=== PATIENT | male | born 1940 | race Caucasian/White ===

== ENCOUNTER 2019-09-12 16:02 | Inpatient (IN) ==
[~2019-09-12 16:02] MED LIST: NS 1,000 ML IV PRN
--- NOTE | 2019-09-12 16:30 | Diag Imaging Result Doc PS360 ---
EXAM: CT HEAD W/O CONTRAST 09/12/2019 HISTORY: stroke like symptoms TECHNIQUE: This exam was performed using automated exposure control, adjustment of mA or kV according to patient size, and/or use of iterative reconstruction technique. COMMENT: There are calcifications in the vertebral and internal carotid arteries. There is no evidence of mass effect, bleed, or abnormal extra-axial fluid collection. There are patchy lucencies in the periventricular white matter adjacent to the right frontal horn. There are no previous studies available for comparison. There is some mucosal thickening in the ethmoid air cells otherwise the paranasal sinuses are clear. The calvarium is intact. There is a subcutaneous calcification posteriorly on the left consistent with a trichilemmal cyst. IMPRESSION: Chronic ischemic microvascular white matter changes. No evidence of acute disease. Given the history further evaluation with MRI may be desirable. Electronically signed by Mark Hutchison 09/12/2019 4:27 PM
--- NOTE | 2019-09-12 16:33 | Diag Imaging Result Doc PS360 ---
EXAM: CHEST-PORTABLE 09/12/2019 HISTORY: stroke like symptoms TECHNIQUE: AP portable at 1624 COMMENT: There is ill-defined alveolar opacity in the lingula. The left heart border is partially obscured. There are no previous studies available for comparison. The heart size appears to be within normal limits. IMPRESSION: Pneumonia in the lingula. Electronically signed by Mark Hutchison 09/12/2019 4:31 PM
[2019-09-12 16:50] LABS: BASO# 0.02 X1000 (0.0-0.2); BASO% 0.3 % (0.0-0.8); EOS# 0.04 X1000 (0.0-0.7); EOS% 0.5 % (0.0-10.0); HEMATOCRIT 42.7 % (42.0-52.0); HEMOGLOBIN 14.1 g/dL (14.0-18.0); LYMPH# 0.74 X1000 (1.2-3.4); LYMPH% 10.1 % (20.5-51.1); MCV 90.9 FL (81-99); MONO# 0.76 X1000 (0.11-0.59); MONO% 10.3 % (1.7-9.3); MPV 10.1 FL (7.4-10.4); NEUT% 78.8 % (42.2-75.2); PLT 147 X1000 (130-400); RDW 14.6 % (11.5-14.5); WBC 7.36 X1000 (4.8-10.8)
[2019-09-12 17:06] LABS: INR 1.14; PROTIME 14.8 Seconds (11.0-16.0)
[2019-09-12 17:07] LABS: PTT 35.2 Seconds (22.3-41.8)
[2019-09-12 17:15] LABS: AGAP 10; ALB/GLOB RATIO 1.6; ALBUMIN 3.5 g/dL (3.5-5.0); ALKALINE PHOSPHATASE 79 U/L (32-122); BUN 18 mg/dL (8-22); CALCIUM 8.7 mg/dL (8.8-10.2); CHLORIDE 103 mmol/L (98-107); COSMO 277; ESTIMATED GFR > 60; GLUCOSE 153 mg/dL (70-104); GOT 17 U/L (10-34); GPT 5 U/L (10-44); SODIUM 136 mmol/L (136-145); TCO2 23 mmol/L (25-35); TOTAL BILIRUBIN 0.45 mg/dL (0.20-1.00); TOTAL PROTEIN 5.7 g/dL (6.3-8.3)
[2019-09-12] MEDS ORDERED: ASPIRIN PO ONE (17:22)
--- NOTE | 2019-09-12 17:25 | PROVIDER DOCUMENTATION ---
This chart was entered by Lyndsey Iqbal Scribe, acting as scribe for Grupo Starr MD. HPI-Neurological Disorder - General Chief Complaint: STROKE ALERT Stated Complaint: stroke like symptoms Time Seen by Provider: 09/12/19 16:20 Source: patient, EMS Allergies/Adverse Reactions: Patient Allergies Allergy/AdvReac Type Severity Reaction Status Date / Time Penicillins AdvReac Unknown Verified 09/12/19 16:26 Home Medications: Home Medication List Medication Instructions Recorded Confirmed Last Taken Type Cholecalciferol (Vitamin D3) 50 mcg PO DAILY 09/12/19 09/12/19 09/12/19 History [D3-2000] Losartan/Hctz [Hyzaar 50/12.5 mg] 1 ea PO DAILY 09/12/19 09/12/19 09/12/19 History Metoprolol Tartrate [Lopressor] 100 mg PO BID 09/12/19 09/12/19 09/12/19 History Ubidecarenone [Coq-10] 100 mg PO DAILY 09/12/19 09/12/19 09/12/19 History - History of Present Illness-Neuro Nature of Presenting Problem: 79yowm presents to ED by EMS cc trouble walking, generalized weakness that started about 1000, slurred speech that started about 1530 according EMS who were called by pt son at 1620 after pt fell. EMS reports pt speech was slurred/thick, he had left facial droop with drooling and leaning to left upon their arrival and all but the slurred speech has resolved in ED. Pt denies marte or any injury. He is VERY emotional upon exam. He has hx of HTN. Severity: reports: moderate Onset/Duration: reports: this morning (1000) Timing: reports: still present Context: reports: impaired speech, falling Approximate time patient was last seen normal?: 10:00 Any recent trauma/injury?: reports: none Character of Deficits: reports: impaired speech, decreased ability to walk, fal ling New weakness or altered sensation location:: reports: RLE, LLE Cognitive Baseline: alert, oriented x3 Gait Baseline: walks without assistance Associated Symptoms: reports: slurred speech, trouble walking, weakness Similar Symptoms Previously?: No Recently seen or treated by another doctor?: No Review of Systems - Adult - REVIEW OF SYSTEMS - ADULT Constitutional: reports: see HPI. denies: chills, fever, fatique Eyes: reports: no symptoms reported Ears, Nose, Mouth & Throat: reports: no symptoms reported Cardiovascular: reports: no symptoms reported Respiratory: reports: no symptoms reported Gastrointestinal: reports: no symptoms reported Genitourinary: reports: no symptoms reported Musculoskeletal: reports: see HPI, muscle weakness Integumentary: reports: no symptoms reported Neurological: reports: see HPI, slurred speech. denies: headache/migraines Psychiatric: reports: no symptoms reported Endocrine: reports: no symptoms reported Hematologic/Lymphatic: reports: no symptoms reported Allergic/Immunologic: reports: no symptoms reported All Other Systems: Reviewed and Negative Past History - Adult - PAST MEDICAL HISTORY-ADULT Review of Records: reports: Nursing Assessment Review, Medications Reviewed, Social history reviewed & non-contributory. Major Childhood Illnesses: reports: denies history Cardiovascular: reports: HTN Respiratory: reports: denies history Gastrointestinal: reports: denies history Obstetrical/Gynecological: reports: denies history Genitourinary: reports: denies history Musculoskeletal: reports: denies history Neurological: reports: denies history Endocrine/Immune: reports: denies history Other Conditions: reports: denies history - IMMUNIZATION STATUS Childhood Immunizations: See Nurse Assessment Flu Vaccine: See Nurse Assessment - FAMILY HISTORY Family History: reviewed, not pertinent Physical Exam- Neurological - Physical Exam-Neuro Initial Vital Signs Reviewed: Yes General Appearance: appears well, alert. negative: anxious Eye Exam: bilateral eye: normal inspection, PERRL HENMT: normocephalic/atraumatic, moist mucous membranes. negative: angioedema Head Injury: no evidence of injury. negative: active bleeding Neck: non-tender, full range of motion, supple, normal inspection. negative: lymphadenopathy Respiratory: chest non-tender, lungs clear, normal breath sounds. negative: rhonchi, wheezing Cardiovascular: normal peripheral pulses, regular rate, rhythm. negative: bradycardia, tachycardia Abdominal Exam: normal bowel sounds, non tender, soft. negative: guarding, rebound Lymphatic: no adenopathy. negative: enlargement Extremity: normal range of motion, non-tender, normal gait, normal inspection. 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 negative: facial droop Motor/Sensory: no motor deficit, no sensory deficit, no pronator drift Integumentary: normal color, normal turgor, warm/dry. negative: jaundice Psych/Mental Status: oriented x 3, tearful. negative: disheveled - Glascow Coma Scale Best Eye Response: (4) open spontaneously Best Verbal Response: (5) oriented Best Motor Response: (6) obeys commands Total Glascow Score: 15 Progress - PLAN OF CARE/RESULTS Progress/Plan/Lab Results: Vital Signs - 8 hr 09/12/19 16:24 Temperature 98.2 F Pulse Rate 65 Respiratory Rate 17 Blood Pressure 146/114 O2 Sat by Pulse Oximetry 98 Laboratory Results - last 24 hr 09/12/19 09/12/19 09/12/19 16:35 16:35 16:35 WBC 7.36 RBC 4.70 Hgb 14.1 Hct 42.7 MCV 90.9 MCH 30.0 MCHC 33.0 RDW Std Deviation 14.6 H Plt Count 147 MPV 10.1 Neut % (Auto) 78.8 H Lymph % (Auto) 10.1 L [place] % (Auto) 10.3 H Eos % (Auto) 0.5 Baso % (Auto) 0.3 Neut # (Auto) 5.80 Lymph # (Auto) 0.74 L [place] # (Auto) 0.76 H Eos # (Auto) 0.04 Baso # (Auto) 0.02 PT INR PTT (Actin FS) Sodium 136 Potassium 4.0 Chloride 103 Carbon Dioxide 23 L Anion Gap 10 BUN 18 Creatinine 1.0 Estimated GFR/1.73 m2 > 60 BUN/Creatinine Ratio 18 Glucose 153 H Calculated Osmolality 277 Calcium 8.7 L Total Bilirubin 0.45 AST 17 ALT 5 L Alkaline Phosphatase 79 Troponin T High Sens 11 Total Protein 5.7 L Albumin 3.5 Globulin 2.2 Albumin/Globulin Ratio 1.6 09/12/19 16:35 WBC RBC Hgb Hct MCV MCH MCHC RDW Std Deviation Plt Count MPV Neut % (Auto) Lymph % (Auto) [place] % (Auto) Eos % (Auto) Baso % (Auto) Neut # (Auto) Lymph # (Auto) [place] # (Auto) Eos # (Auto) Baso # (Auto) PT 14.8 INR 1.14 PTT (Actin FS) 35.2 Sodium Potassium Chloride Carbon Dioxide Anion Gap BUN Creatinine Estimated GFR/1.73 m2 BUN/Creatinine Ratio Glucose Calculated Osmolality Calcium Total Bilirubin AST ALT Alkaline Phosphatase Troponin T High Sens Total Protein Albumin Globulin Albumin/Globulin Ratio Orders Category Date Time Status Cardiac Monitoring DIRECTED Care 09/12/19 16:00 Active Finger Stick Blood Sugar (ED) DIRECTED Care 09/12/19 16:00 Active Misc. NRSG Communication Order DIRECTED Care 09/12/19 16:00 Active Oxygen Therapy- ED Nursing DIRECTED Care 09/12/19 16:00 Active Saline Loc NOW Care 09/12/19 16:00 Active CHEST-PORTABLE [RAD] Stat Exams 09/12/19 16:[address] HEAD W/O CONTRAST [CT] Stat Exams 09/12/19 16:00 Completed CBC WITH ELECTRONIC DIFF [HEME] Stat Lab 09/12/19 16:35 Completed COMPREHENSIVE METABOLIC PANEL [CHEM] Stat Lab 09/12/19 16:35 Completed PROTIME WITH INR [COAG] Stat Lab 09/12/19 16:35 Completed PTT [COAG] Stat Lab 09/12/19 16:35 Completed TROPONIN T HIGH SENSITIVITY Stat Lab 09/12/19 16:35 Completed URINALYSIS W/POSS RFLX CULT [URINALYSIS] Stat Lab 09/12/19 16:00 Uncollected URINE DRUG SCREEN Stat Lab 09/12/19 16:00 Uncollected 0.9% Sodium Chloride Inj [Ns] 1,000 ml Med 09/12/19 15:59 Active IV 125 mls/hr Aspirin Med 09/12/19 17:22 Discontinued 325 mg PO NOW ONE EKG [EKG] Stat Ther 09/12/19 16:00 Ordered Result Diagrams: 09/12/19 16:35 09/12/19 16:35 - EKG 1 Time of EKG reading by physician:: 16:49 EKG Read and Signed by:: Grupo Starr EKG Interpretation (*Must complete 3 of following elements*): Abnormal Rate: 81 Rhythm: Sinus w/PVC [place]: normal QRS: LVH, PVC's ST Wave: normal - XRAY 1 XRAY: Bilateral XRAY Study: Chest Impression: See EMR Report ( IMPRESSION: Pneumonia in the lingula. Electronically signed by Mark Hutchison 09/12/2019 4:31 PM) - CT/MRI 1 CT Study: Cervical Spine, Head Impression: See EMR Report (IMPRESSION: Chronic ischemic microvascular white matter changes. No evidence of acute disease. Given the history further evaluation with MRI may be desirable. Electronically signed by Mark Hutchison 09/12/2019 4:27 PM) - CONSULTS/PCP/HOSPITALIST Notification #1 *Consult/PCP/Hospitalist*: Silke/CERTIFIED MEDICAL TECHNICIAN ASSISTANT Time Discussed: 17:22 Consult Disposition: Admit Departure - Departure Date of Disposition Decision: 09/12/19 Time of Disposition Decision: 17:21 DIAGNOSIS: HTN (hypertension) CVA (cerebral vascular accident) Qualifiers: CVA mechanism: unspecified Qualified Code(s): I63.9 - Cerebral infarction, unspecified Disposition: ADMITTED INPATIENT 09 Certified Medical Emergency: Emergent Condition: Fair Referrals and Follow-Ups: Roberto Gallagher MD [Primary Care Provider] - - Critical Care Note This patient required my direct & personal management of CC.: Yes Total Time (mins): 35 Critical Care Statement: This patient required my direct personal management to treat or rule out processes, the absence of which, could potentiallly result in sudden, clinically significant life or limb threatening deterioration. Attestation - Physician/ TEOFILO Attestation Patient care was provided by Advanced Practice Provider:: No The physician spent face to face time with patient:: Yes Advanced Practice Provider documentation review:: Supervising physician onsite and consulted in the evaluation and care of this patient. The physician did have a face to face encounter with the patient. - NIH Stroke Scale NIH Type: Initial Evaluation Level of Consciousness: 1-Drowsy, but arousable with minimal stimulation LOC Questions (ask month and age): 0-Answers Both Correctly LOC Commands (ask to open & close eyes;make a fist, let go): 0-Obeys Both Correctly Best Gaze (horizontal eye movement): 0-Normal Visual (use finger movement, counting or visual threat): 0-No Visual Loss Facial Palsy (show teeth or raise eyebrows & close eyes tght: 0-Symmetrical Movement Motor Function-left arm: 0-Normal Motor Function-right arm: 0-Normal Motor Function-left le-Normal Motor Function-right le-Normal Limb Ataxia(zjjeji-ublk-quciul, or heel to alcantar): 0-No Ataxia Sensory(pin prick to face,arms,trunk,legs-compare side/side): 0-No Ataxia Best Language(name item/read sentence.Ex-Down to Earth): 1-Mild to Moderate Aphasia Dysarthria(Pt read words or say words Ex.Mama,Tip-Top,Thanks: 1-Mild-Mod Slurring Words Extinction and Inattention: 0-Normal NIH Total Score: 3 This chart was documented by the indicated scribe, (Lyndsey Iqbal, Scribe) and accurately reflects the services I performed and decisions made by me, Grupo Starr MD, as attested by the provider's signature.
[2019-09-12] MEDS ORDERED: ZITHROMAX 500 MG/NS 500 MG/250 ML IVPB IV SCH (18:00)
[2019-09-12] MEDS ORDERED: TYLENOL PO PRN (18:28)
[2019-09-12 18:35] LABS: URINE SOURCE CLEAN CATCH
[2019-09-12 18:41] LABS: BILIRUBIN URINE NEGATIVE (NEGATIVE); BLOOD URINE NEGATIVE (NEGATIVE); COLOR YELLOW; GLUCOSE URINE NEGATIVE (NEGATIVE); KETONE URINE NEGATIVE (NEGATIVE); LEUKOCYTES URINE LARGE (NEGATIVE); NITRITE URINE NEGATIVE (NEGATIVE); PROTEIN URINE TRACE mg/dL (NEGATIVE); SP GRAVITY URINE 1.021; TURBIDITY URINE HAZY (CLEAR); UROBILINOGEN URINE NORMAL (NORMAL)
[2019-09-12 18:44] LABS: UR EPITHELIAL CELLS <10 /HPF (<10); URINE BACTERIA 1+ /HPF; URINE RBC <10 /HPF (<10); URINE WBC TNTC /HPF (<10)
[2019-09-12 18:55] LABS: URINE CASTS NONE SEEN
[2019-09-12 18:58] LABS: UR AMPHETAMINES QUAL NONE DETECTED (NONE DETECT); UR BARBITUATES QUAL NONE DETECTED (NONE DETECT); UR BENZODIAZEPIN QUAL NONE DETECTED (NONE DETECT); UR CANNABINOIDS QUAL NONE DETECTED (NONE DETECT); UR COCAINE QUAL NONE DETECTED (NONE DETECT); UR METHADONE QUAL NONE DETECTED (NONE DETECT); UR OPIATES QUAL NONE DETECTED (NONE DETECT); UR OXYCODONE QUAL NONE DETECTED (NONE DETECT); UR PCP QUAL NONE DETECTED (NONE DETECT)
[2019-09-12] MEDS ORDERED: LEVAQUIN 500 MG/D5W 500 MG/100 ML IVPB IV SCH (19:30)
--- NOTE | 2019-09-12 19:31 | HISTORY AND PHYSICAL ---
PRIMARY CARE PROVIDER: No one. CHIEF COMPLAINT: Speech difficulties. HISTORY OF PRESENT ILLNESS: Mr. Troy Shepard is an 79-year-old male. He is able answer a lot of questions appropriately but he has got a medical history of hypertension, denies history of stroke. He states that he woke up around 6 a.m. and thought it was around 9 a.m. that he could not talk right, he felt lightheaded, some slight blurred vision. When the son was called the son states that it started around 10 a.m., noticed he had some trouble walking, decreased concentration, unable to focus well with the speech deficits. He did not notice that there was one side or the other that could have been more weak than the other. He also has said that his father had vertigo on and off for the past month or so. Assessment reveals mostly speech deficits. He does have some expressive aphasia. He is completely oriented. He is able to answer yes or no questions easier than answering with long answers, physically is symmetrical as far strength. There is no numbness or tingling. Pupils are equal and reactive. Face is symmetric so will allow for some permissive hypertension overnight and start him back on his beta nivia tomorrow. He is going to go for CTA of the head and neck. PAST MEDICAL HISTORY: Hypertension. SURGICAL HISTORY: 1. Appendectomy. 2. Right inguinal hernia repair. SOCIAL HISTORY: Denies tobacco, alcohol or illicit drug use. He lives with his son who is Troy Shepard Junior. Contact is [phone]. FAMILY HISTORY: Mother NC, father in a accident. ALLERGIES: Penicillin. HOME MEDICATIONS: 1. Co-Q10 100 mg p.o. daily. 2. Vitamin D3 50 mcg p.o. daily. 3. Hyzaar 50/12.5 mg p.o. daily. 4. Lopressor 100 mg p.o. twice daily. REVIEW OF SYSTEMS: Fourteen point review of systems are complete and all are negative except for those mentioned above HPI, he is actually emotional as well, very tearful. PHYSICAL EXAMINATION: VITAL SIGNS: Temperature 98.2 degrees, heart rate 65, respiratory rate 17, blood pressure 146/114, O2 saturation 98% on room air. GENERAL: Mr. Troy Shepard is an 79-year-old male. He is quite emotional but he is able answer questions appropriately and much easier answering yes and no questions. HEENT: Atraumatic, normocephalic. Pupils are equal and reactive. Extraocular movements intact. Mucous membranes are moist. NECK: Trachea midline. CARDIOVASCULAR: S1, S2. Regular rate and rhythm. No rubs, gallops, murmurs. No lower extremity edema. +2 dorsalis and radial pulses, negative JVD or carotid bruits. PULMONARY: Clear to auscultate bilateral breath sounds. No accessory muscle use or work of breathing. GI: Soft, nontender, nondistended. Positive bowel sounds x4. EXTREMITIES: Moves all extremities equally, full range of motion. NEURO: A and O x3, follows commands. Sensory is intact. He does have some mild degree of expressive aphasia with slurred or dysarthria. SKIN: Warm, dry, intact. LABORATORY DATA: White blood cells 7000, hemoglobin 14, hematocrit 42, platelet count 147,000, INR is 1.14, PTT is 35.2. Sodium 136, potassium 4.0, BUN 18, creatinine 1.0, glucose 153, calcium 8.7, bilirubin 0.45, AST 17, ALT 5, troponin 11, albumin 3.5. Urinalysis trace protein, large leukocytes, too numerous to count white blood cells, 1+ bacteria. IMAGING: Chest x-ray, pneumonia in the lingula. Head CT chronic ischemic microvascular ischemic changes. ASSESSMENT AND PLAN: 1. Acute cerebrovascular accident primarily with speech deficit and dysarthria and expressive aphasia. Initial head CT negative. Head CTA and neck CTA has been ordered. Will have carotid ultrasound tomorrow, echocardiogram. Patient's son has been updated, he is on aspirin, statin, neurology consulted for tomorrow. 2. History of hypertension but we are going allow for permissive hypertension overnight, resume his beta nivia tomorrow. 3. Deep venous thrombosis prophylaxis SCDs. Dictated by ALVARADO Miller for Guido Núñez MD cc: ALVARADO Miller MD
--- NOTE | 2019-09-12 19:53 | HISTORY AND PHYSICAL ---
ADDENDUM: This is an addendum to history and physical dictated by the nurse practitioner. I agree with most components of history, physical, assessment, and plan. In brief, Mr. Shepard is an 79-year-old man with past medical history of essential hypertension who comes in with chief complaints of aphasia, dysphagia and dysarthria since 10 a.m. this morning. We were informed about this patient around 6 p.m. and we were informed by the ER physician that the patient was out of tPA window and he did not have any measurable defect according to history gathered by the nurse practitioner while talking to patient's son, the patient has been having difficulty with vertigo since last month or so. Today morning around 10 a.m. when he woke up he was found to have dysarthria, dysphagia and aphasia and he was not able to speak out the words, so his son called the emergency room. In the emergency room, he was found to have temperature of 98.2 degrees, pulse 65, respiratory 17, blood pressure 146/114, saturating 98% on room air. His head CT was unremarkable for any acute intracranial process, so the hospitalist team was consulted for further management. PHYSICAL EXAM: At the time of my evaluation, the patient denies any weakness of any particular arm or leg. He denies any abnormal sensation. He denies any known facial droop. He is crying because of inability to speak out the words as fluently as he would otherwise. His oral cavity is dry. Air entry bilaterally equal. No wheeze, rhonchi, crackles.Cardiovascular: S1, S2 normal. No murmur or gallop. Abdomen: Is soft, nontender. : He has urine catheter. Extremities: No lower extremity edema. Neurologic: He is alert. He could tell me his full name, his date, and he was oriented with situation as well as place. No facial asymmetry. Extraocular movement intact horizontally and vertically. He does have nystagmus at the end of horizontal movement. Pupils are bilaterally equal reacting to light. Visual acuity grossly intact. Facial sensations are intact. Tongue appears normal. I did not check for taste. His cough is intact. His shoulder shrug is equal in bilateral shoulders. His sensation equal bilateral upper and lower extremity. His tone is 2+ bilateral upper and lower extremities. His power is 5 on 5 on bilateral shoulder elbow interphalangeal, hip, knee and ankle joints. His reflexes are 2+ biceps and knee jerks. His Babinski has plantar flexion, though he did have some withdrawal bilaterally. His speech is rapid and is dysarthric. I could not appreciate any paraphasia. He has intolerance to light. He was not able to perform rapid alternating movement appropriately with both hands. LABS: WBC 7.3, hemoglobin 14.1, platelets 147,000. He has a glucose of 153. He has pyuria, though he denied any burning micturition. Urine culture is in lab. Head CT had chronic microvascular ischemic changes without evidence of acute disease. ASSESSMENT AND PLAN: 1. Dysarthria, aphasia, nystagmus on exam and dysdiadochokinesia with history of recent vertigo since last few weeks. The patient has risk factors of essential hypertension, age being risk factors for cerebrovascular accident. These findings are concerning for cerebellar cerebrovascular accident. There is no focal weakness on examination. I will get CT scan angiography of head and neck to rule out any basilar or vertebral artery occlusion. I will also get MRI of brain to evaluate for definitive cerebrovascular accident. I will keep him on aspirin, high-dose atorvastatin and will allow permissive hypertension unless his systolic blood pressure is more than 220 or diastolic blood pressure is more than 115. 2. 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 I will check magnesium level. In future, I will consider adding metoprolol to his regimen. 3. Pyuria without any symptoms and left lung infiltrate. I will start him on intravenous levofloxacin and I will get further detailed history about urinary symptoms. Currently, the patient was emotional and did not contribute to the history meaningfully. To be certain whether this is asymptomatic pyuria versus urine infection elderly could precipitate central nervous system symptoms. DISPOSITION: Monitor patient on the floor. Plan of care discussed with the patient. His questions have been answered. cc: MD ELIZABETH Herrera
[2019-09-12] MEDS: LIPITOR PO SCH (22:09)
[2019-09-13 07:10] LABS: BASO# 0.06 X1000 (0.0-0.2); BASO% 0.7 % (0.0-0.8); EOS# 0.06 X1000 (0.0-0.7); EOS% 0.7 % (0.0-10.0); HEMATOCRIT 41.4 % (42.0-52.0); HEMOGLOBIN 13.7 g/dL (14.0-18.0); IMM GRAN# 0.02 X1000 (0.0-0.04); IMM GRAN% 0.2 % (0.0-0.5); LYMPH# 1.11 X1000 (1.2-3.4); LYMPH% 12.8 % (20.5-51.1); MCH 30.2 PG (27-31); MCHC 33.1 g/dL (33-37); MCV 91.2 FL (81-99); MONO# 0.84 X1000 (0.11-0.59); MONO% 9.7 % (1.7-9.3); MPV 10.1 FL (7.4-10.4); NEUT# 6.56 X1000 (1.4-6.5); NEUT% 75.9 % (42.2-75.2); PLT 148 X1000 (130-400); RBC 4.54 XMIL (4.7-6.1); RDW 14.5 % (11.5-14.5); WBC 8.65 X1000 (4.8-10.8)
[2019-09-13 07:37] LABS: ESTIMATED GFR > 60; GPT < 5 U/L (10-44)
[2019-09-13 07:38] LABS: AGAP 11; ALB/GLOB RATIO 1.3; ALBUMIN 3.3 g/dL (3.5-5.0); ALKALINE PHOSPHATASE 73 U/L (32-122); BUN 17 mg/dL (8-22); CALCIUM 8.5 mg/dL (8.8-10.2); CHLORIDE 107 mmol/L (98-107); COSMO 285; CREATININE 0.9 mg/dL (0.7-1.2); GLUCOSE 110 mg/dL (70-104); GOT 16 U/L (10-34); POTASSIUM 3.7 mmol/L (3.5-5.1); SODIUM 142 mmol/L (136-145); TCO2 24 mmol/L (25-35); TOTAL BILIRUBIN 0.65 mg/dL (0.20-1.00); TOTAL PROTEIN 5.8 g/dL (6.3-8.3)
--- NOTE | 2019-09-13 07:49 | EKG Report ---
Test Performed on : 09/12/2019 4:42:47 PM Test Reason : stroke like sx Blood Pressure : / mmHG Vent. Rate : 081 BPM Atrial Rate : 081 BPM P-R Int : 204 ms QRS Dur : 094 ms QT Int : 400 ms P-R-T Axes : 055 -05 067 degrees QTc Int : 464 ms Sinus rhythm. with frequent premature ventricular complexes. Minimal voltage criteria for LVH, may be normal variant Septal infarct , age undetermined Abnormal ECG When compared with ECG of 11-FEB-2007 13:08, premature ventricular complexes. are now present ST now depressed in Lateral leads Unconfirmed Result
--- NOTE | 2019-09-13 08:17 | Diag Imaging Result Doc PS360 ---
CT ANGIOGRAM HEAD/NECK - 09/12/2019 INDICATION: stroke; speech/aphasic TECHNIQUE: Axial CT images were obtained after administering intravenous contrast. Three-dimensional angiographic images were generated. COMPARISON: None FINDINGS: Normal aortic arch and great vessel origins. The carotid artery systems are patent bilaterally. No significant stenosis. There is moderate calcified atherosclerotic plaque of the intracranial vertebral arteries bilaterally. On the left side, there is critical stenosis of the vertebral artery at the level of the odontoid. There is about 95% narrowing here. 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 There is moderate calcified vascular plaque of the supraclinoid internal carotid arteries bilaterally. On the right side there is mild stenosis of about 30% narrowing. On the left side, there is severe stenosis of about 80% narrowing. IMPRESSION: 1. 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 2. Atherosclerotic narrowing of the supraclinoid internal carotid arteries bilaterally, mild on the right and severe on the left. This exam was performed using automated exposure control, adjustment of mA or kV according to patient size, and/or use of iterative reconstruction technique Electronically signed by Francois Boone 09/13/2019 8:14 AM
[2019-09-13] MEDS ORDERED: LOPRESSOR PO SCH (09:00)
--- NOTE | 2019-09-13 11:46 | Diag Imaging Result Doc PS360 ---
MRI BRAIN W/WO CONTRAST - 09/13/2019 INDICATION: stroke COMPARISON: CT from 09/12/2019 FINDINGS: There is a relatively large area of restricted diffusion in the right paramedian tahir. This indicates an acute stroke here. This pontine stroke is very close to the area of focal occlusion of the basilar artery. There is also a tiny area of restricted diffusion in the superior right cerebellar hemisphere. No intracranial mass or hemorrhage. There is no abnormal contrast enhancement. There are several scattered areas of primarily deep cerebral white matter hyperintensity bilaterally indicating most likely chronic microvascular ischemia. This is relatively advanced. There is mild diffuse cerebral atrophy. IMPRESSION: Recent strokes in the right paramedian tahir and right cerebellar hemisphere. 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 Electronically signed by Francois Boone 09/13/2019 11:43 AM
[2019-09-13] MEDS: VITAMIN D PO SCH (12:11)
[2019-09-13] MEDS: ASPIRIN PO SCH (12:11)
--- NOTE | 2019-09-13 12:11 | NEUROLOGY CONSULTATION ---
DATE: 09/13/2019 LOCATION: Room 314. HISTORY OF PRESENT ILLNESS: Mr. 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 History from the patient is that he felt well yesterday morning. He had sudden onset of unsteady gait, dizziness with possible room spinning features, dysarthria, dysphagia, horizontal diplopia. He felt weak all over, and did not notice definite loss of strength in one limb more than another or on one side of his body more than the other. He had a global headache, which was never intense. There was no nausea or vomiting. He did not collapse or lose consciousness. He did fall. He thinks he is a little bit worse today, but not remarkably changed. He reports no prior history of similar problems, no prior stroke, no recent head injury, no other neurologic history. He reports he was taking his medicines as directed. He takes medicine for blood pressure. He believes he might have taken medicine for cholesterol management in the past, but not recently. He had taken daily aspirin in the past, but not recently. Here, he has been afebrile. Heart rate has ranged 60s to 80s. Systolic blood pressures have ranged 100 to 150s. Lab showed blood sugars 150s and then 110, calcium 8.7 and then 8.5, nothing else remarkable on chemistry. Urine drug screen was all negative. There was pyuria and 1+ bacteriuria. Brain imaging includes initial noncontrast CT, which shows typical age-related micro ischemic change, but nothing definitely remarkable. 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 Brain MRI is ordered. PHYSICAL EXAMINATION: On exam, Mr. Shepard is awake, alert, attentive, and appropriate. Speech is very dysarthric, but can be understood. Language function is intact on brief bedside testing. Recent and remote memory appear good. I did not test his cognitive function thoroughly. He has full visual silvestre tested in each quadrant to finger counting. There is good vertical eye movement. There is incomplete abduction of the right eye and he reports horizontal diplopia on right gaze. He reports horizontal diplopia on gaze left and this is more fleeting, and there was not any consistent finding on cover/uncover testing with left gaze. Corneal reflexes are present. Pupils react to light. Facial motility is a little bit diminished bilaterally, but appears symmetric. Tongue protrudes slightly to the left. Palate does not elevate well, but is midline. Shoulder shrug is equal on the left and right. Strength is 4/5 in the left limbs at the deltoid, wrist extensors, iliopsoas, anterior tibialis, and power is good in the right limbs. Tone is increased in the left arm compared to the right. He had difficulty with left [id number] and with rapid alternating movements using the left hand. There is slight difficulty with right finger to nose. He has good proprioception at the great toe MTP joint and at the index finger PIP joint bilaterally. He reports symmetric pinprick and light touch appreciation over the limbs. Plantar response is silent bilaterally. Reflexes are 1+ at the ankles, 2+ at the right knee, 3+ at the left knee, 2+ symmetrically at the wrists. I did not test his gait. IMPRESSION: Reported sudden onset of dysphagia, dysarthria, horizontal diplopia, generalized weakness and clumsiness, with clinical finding of left hemiparesis, which is relatively moderate. There is not definite sensory deficit. 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 Horizontal diplopia suggests pontine involvement. The limb ataxia is bilateral, but much worse on the hemiparetic left side. There may be additional right cerebellar or left brainstem involvement. All of this is posterior circulation territory. RECOMMENDATION: We need to be aggressive with hydration, and maintain adequate systolic blood pressure. I would continue aspirin and statin, and be aggressive with management of blood sugar. Further plans will depend on the MRI report and on his clinical course. Thank you for asking Neurology to see Mr. Shepard. cc: MD ELIZABETH Paul III
--- NOTE | 2019-09-13 14:49 | ECHO REPORT ---
ORDER DATE: 09/13/2019 INDICATIONS: CVA. FINDINGS: 1. Right atrium appears mildly enlarged at 4.3 cm. 2. Mild tricuspid regurgitation. Insufficient data to estimate RV systolic pressure. 3. Normal RV size and systolic function. 4. Trace pulmonic insufficiency. 5. Mild left atrial enlargement with a dimension of 4.5 cm. 6. No mitral valve prolapse. Mild mitral regurgitation. No mitral stenosis. 7. Normal LV size, end-diastolic dimension of 4.6 cm. Mild left ventricular hypertrophy with interventricular septal wall thickness of 1.2 cm. Normal LV systolic function. Estimated EF of 65% with normal wall motion. 8. Aortic valve opens well. It is sclerotic. The valve is trileaflet. Mild insufficiency. No stenosis. 9. Aorta appears normal in visualized segments. 10. No pericardial effusion seen. cc: MD Silke Walters CRNP
--- NOTE | 2019-09-13 16:22 | PROGRESS NOTE ---
DATE: 09/13/2019 INTERVAL HISTORY: He got a CT scan of head and brain angiography as well as MR imaging done this morning, which he tolerated well. SUBJECTIVE: He denies any chest pain, shortness of breath, or cough. He says he is feeling slightly better. He continues to have dysarthria though. VITALS: Currently, temperature 98.1 degrees, pulse 82, respiratory rate 19, blood pressure 152/78, he is saturating 98% on room air. PHYSICAL EXAMINATION: He is not in any acute distress. Oral cavity is moist. Lungs: Air entry bilaterally equal. No wheeze, rhonchi, or crackles. Cardiovascular: S1, S2 normal. No murmur, rub, or gallop. He does have frequent premature ventricular contractions. Abdomen: Soft, nontender. No lower extremity edema. He is alert. He does have significant speech impairment. No facial asymmetry. Cranial Nerve Examination: He has diplopia on the right eye abduction, though his responses were inconsistent. Otherwise, extraocular movements are intact horizontally and vertically. Pupils are bilaterally equal reacting to light. Facial sensations are intact. Tongue appears midline. His swallowing is slightly weak. His shoulder shrug is bilaterally equal and adequate. He does have significant dysarthria, dysphagia, and emotional lability. Sensory Examination: Crude touch equal bilateral upper and lower extremities as well as trunk. Motor Examination: Power is 4/5 in bilateral elbow joints, interphalangeal joints, wrist joints, knee joints, ankle joints, and hip joints. Tone appears bilaterally equal. He is alert. He could tell me his name, date, and he was aware with the situation. LABS: CBC has hemoglobin 13.7 platelets 148,000. IMAGING: Echocardiogram has ejection fraction of 65% with normal wall motion, mild left ventricular hypertrophy without any obvious mitral stenosis or intracardiac thrombus mentioned. Brain MRI had recent stroke in the right paramedian tahir and right cerebellar hemisphere. 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 There was atherosclerotic narrowing of the supraclinoid internal carotid arteries bilaterally, mild on the right and severe on the left. Telemetry strips have frequent premature ventricular contractions, though he denies any palpitations. ASSESSMENT AND PLAN: 1. 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 Continue aspirin, high- dose atorvastatin, and enoxaparin for deep venous thrombosis prophylaxis. Continue speech evaluation and physical therapy. I will keep his blood pressure more than 140 and keep him on intravenous fluids. 2. Left ventricular hypertrophy with premature ventricular contractions. He denies any palpitations. I will consider starting him on metoprolol. He may need outpatient repeat ECHO in future considering his premature ventricular contractions have been frequent. However, his ejection fraction has been normal at the moment. 3. Disposition. I will monitor him inside the hospital to make sure he does not have any worsening of the symptoms. I had a discussion about his case with the neurologist who recommended close observation. If he does not have worsening of neurological status, I could consider discharging him back to home with his son within the next 24 hours. I called his son and updated him about the patient's care. At the moment, considering the small size of the artery which is basilar that is occluded, neurology is of the opinion that he may not be amenable to any intervention, especially considering his neurological status has been stable and has not shown any signs of worsening, so I did not reach out to [facility]. ADDENDUM: I had a discussion with patient's son about home PT and home speech therapy vs rehab. The son suggested he would prefer his father to go home with him. However, he was not totally opposed to rehab either. At that point, we decided to wait for another PT evaluation on 09/14/19. Depending on how he does on repeat PT eval, a decision regarding home PT and home speech therapy vs rehab would be made. cc: MD ELIZABETH Herrera
--- NOTE | 2019-09-13 17:25 | PROGRESS NOTE ---
DATE: 09/13/2019 ADDENDUM: I performed a repeat neurological evaluation on patient. He continues to remain dysarthric and has dysdiadochokinesia, especially left arm. There is no change in neurological status. Neurological examination otherwise in terms of strength or sensation and a detailed discussion about his care with a neurologist who thinks considering basilar artery being a small posterior circulation artery and the fact that his neurological status has been stable, he could be managed medically. We will aggressively modify risk factors with aspirin, high-dose cholesterol medication, atorvastatin, and I will start him on enoxaparin for DVT prophylaxis. I updated the patient's son about my discussion with the neurologist and answered all of his questions. cc: Guido Núñez MD
[2019-09-13] MEDS ORDERED: LOVENOX SUBQ SCH (18:00)
[2019-09-13] MEDS: LIPITOR PO SCH (21:15)
[2019-09-14 06:47] LABS: BASO# 0.04 X1000 (0.0-0.2); BASO% 0.5 % (0.0-0.8); EOS# 0.09 X1000 (0.0-0.7); EOS% 1.1 % (0.0-10.0); HEMATOCRIT 43.2 % (42.0-52.0); HEMOGLOBIN 14.2 g/dL (14.0-18.0); IMM GRAN# 0.02 X1000 (0.0-0.04); IMM GRAN% 0.2 % (0.0-0.5); LYMPH# 1.08 X1000 (1.2-3.4); LYMPH% 12.6 % (20.5-51.1); MCHC 32.9 g/dL (33-37); MCV 91.1 FL (81-99); MONO# 0.98 X1000 (0.11-0.59); MONO% 11.5 % (1.7-9.3); NEUT# 6.34 X1000 (1.4-6.5); NEUT% 74.1 % (42.2-75.2); PLT 149 X1000 (130-400); RBC 4.74 XMIL (4.7-6.1); RDW 14.6 % (11.5-14.5); WBC 8.55 X1000 (4.8-10.8)
[2019-09-14 07:11] LABS: AGAP 13; ALB/GLOB RATIO 1.7; ALBUMIN 3.6 g/dL (3.5-5.0); ALKALINE PHOSPHATASE 78 U/L (32-122); BUN 18 mg/dL (8-22); CALCIUM 8.9 mg/dL (8.8-10.2); CHLORIDE 102 mmol/L (98-107); COSMO 281; CREATININE 0.9 mg/dL (0.7-1.2); ESTIMATED GFR > 60; GLUCOSE 97 mg/dL (70-104); GOT 19 U/L (10-34); GPT 5 U/L (10-44); POTASSIUM 3.8 mmol/L (3.5-5.1); SODIUM 140 mmol/L (136-145); TCO2 25 mmol/L (25-35); TOTAL BILIRUBIN 0.86 mg/dL (0.20-1.00); TOTAL PROTEIN 5.7 g/dL (6.3-8.3)
[2019-09-14] MEDS: VITAMIN D PO SCH (08:46)
[2019-09-14] MEDS: ASPIRIN PO SCH (08:46)
[2019-09-14 12:25] VITALS: BP 145/87
--- NOTE | 2019-09-14 12:55 | NEUROLOGY PROGRESS NOTE ---
DATE: 09/14/2019 SUBJECTIVE: Mr. Shepard reports he is improved today. He believes his speech and swallowing are better. He believes his limbs are stronger. He reports diplopia has resolved. He does not have headache. He continues afebrile. Systolic blood pressures have been stable 140s-150s over the last 24 hours. OBJECTIVE: On exam, he is awake, alert, and attentive. There is prominent emotional lability with tendency to cry. He has good gaze left, right, up and down, and this appears to be conjugate by confrontation. I did not test visual silvestre. Facial motility is a little bit diminished bilaterally. Tongue protrudes to the left but is improved compared to yesterday. Palate remains midline. Power is improved in the left arm on brief testing. He is less ataxic today than yesterday. Speech is definitely less dysarthric today. ASSESSMENT AND PLAN: We discussed the imaging findings of acute brainstem and cerebellar infarction. In light of his good health prior to stroke, report that this is initial stroke event, stable course with clinical improvement noted in the last 24 hours, location and size of infarct on imaging, I think prognosis for recovery is good. I encouraged him to be attentive and aggressive with his physical therapy, and to be careful with swallowing. We need to continue aggressive hydration, continue maintaining adequate blood pressures, continue aggressive management of blood sugar and lipids. I would continue daily aspirin as ordered. We will need to consider repeat CT angiogram and brain MRI electively. These will not be urgent as long as he is clinically stable and improving. If the problems with affect become more prominent, we might consider cautious trial with Nuedexta. Thanks for asking Neurology to see Mr. Shepard. cc: MD ELIZABETH Paul III
--- NOTE | 2019-09-14 16:23 | DISCHARGE SUMMARY ---
ADMISSION DATE: 09/12/2019 DISCHARGE DATE: 09/14/2019 DISPOSITION: Home with home health. FOLLOWUP: 1. Dr. Mcnair. 2. Dr. Mata. 3. Dr. Mari. CONSULTATIONS DURING THIS ADMISSION: Neurology was consulted. Patient was seen by Dr. Mata. INVASIVE PROCEDURES DONE DURING THIS ADMISSION: None. IMAGING STUDIES OF SIGNIFICANCE: 1. A chest x-ray did show pneumonia in the lingula. 2. CT scan of the head showed chronic microvascular changes. No evidence of acute disease. 3. A CTA of the head and neck showed unusual near-complete occlusion of the intracranial left vertebral artery and basilar artery. There was also atherosclerotic narrowing of the supraclinoid, internal carotid artery bilaterally, mild on the right and severe on the left. 4. An MRI of the brain showed a recent stroke in the right paramedian tahir and right cerebellar hemisphere. 5. An echocardiogram showed an ejection fraction of 65%. No major valvular abnormalities. ADMISSION DIAGNOSES: 1. Acute cerebrovascular accident. 2. Hypertension. DIAGNOSES AT THE TIME OF DISCHARGE: 1. Acute right paramedian, pontine, and right cerebellar cerebrovascular accident manifested clinically by dysphagia, dysarthria, horizontal diplopia, and generalized weakness and clumsiness. 2. Mild left ventricular hypertrophy. 3. Hypertension. 4. Significant carotid atherosclerotic disease, predominantly left more than right. The patient has been advised to follow up with vascular surgery at a later date for an endarterectomy evaluation. DISCHARGE MEDICATIONS: 1. Cholecalciferol 500 mcg p.o. daily. 2. Plavix 75 mg p.o. daily. 3. Losartan 25 mg p.o. daily. 4. Atorvastatin 40 mg p.o. at bedtime. 5. Aspirin 81 mg p.o. daily. 6. Metoprolol 100 mg p.o. daily. PRESENTING COMPLAINT: Speech difficulties. HISTORY OF PRESENTING COMPLAINT: Mr. Shepard is an 79-year-old, elderly, gentleman who has a history of hypertension. Comes to the emergency room because he could not talk, felt lightheaded, some blurred vision, and generalized clumsiness. Upon presenting to the emergency room, code brain was called. Initial CT scan of the head was unremarkable but a CTA was positive. He was subsequently admitted for further medical care. HOSPITAL COURSE: Mr. Shepard was admitted to the medical floor. Initially was allowed permissive hypertension and neurology was consulted. Patient was seen by Dr. Mata. Over the course of the hospital stay, his speech and his general clinical picture seems to have improved. He still remained with mild speech deficits but he was talking more. He was less clumsy. He was evaluated also by physical therapy. After today, he was able to do 100 feet full weightbearing with a front wheel walker. Mr. Shepard was also evaluated by speech therapy. Today, he has been able to tolerate his diet. He has been advised always to observe aspiration precautions. His vitals and clinically stable so we think he is okay to be discharged. Initially, we thought we could get him to rehab but Mr. Shepard is very adamant that he wants to go home. He has done about 100 feet with physical therapy today, so we have recommended home health to continue following him for physical therapy, speech, and occupational therapy. Other discharge instructions have been discussed with him. We started him back on his losartan but at a lower dose. I have also discontinued his hydrochlorothiazide at this point to prevent any intravascular depletion and hypotension. We have advised that Mr. Shepard follows up with Dr. Mari, the vascular surgeon, to evaluate at a later date for an endarterectomy since his imaging shows about 80% narrowing in the left internal carotid artery. Time spent for discharge is 38 minutes. cc: MD Aiden Mcclure MD Eston G. Norwood III, MD Robert C. Walker, MD
--- NOTE | 2019-09-15 14:11 | Carotid Study ---
DATE: 09/13/2019 REQUESTING PROVIDER: ALVARADO Miller WELLNESS PROGRAM MANAGER: Hanson. INDICATIONS: CVA. EQUIPMENT: Carena Vivid E9 ultrasound system with a 9 L-D transducer. FINDINGS: Complete diagram of ultrasound images can be seen, scanned in the patient's medical record. The peak systolic velocity noted on the right side is in the distal internal carotid artery and is noted to be 112. The peak systolic velocity noted on the left side is in the distal internal carotid artery and is noted to be 87. The calculated internal common ratio on the right is 1.46 and the left 0.90. Calculated stenosis on the right is 0 to 39 percent, left 0 to 39 percent. The right side has some atherosclerosis that is calculated at 0 to 39 percent, but is likely closer to the 39% range. The left side also has some atherosclerosis and calcifications. Both vertebral arteries appear to be antegrade flow. INTERPRETATION: By strict velocity criteria no hemodynamically significant flow-limiting stenosis noted. I would recommend continue monitoring. cc: MD Silke Pickard CRNP
== END 2019-09-14 16:10 | disposition home health service (06) | DRG 64 ==
LOC: SUPCPDRO → ED 16:02 → 3N 19:55 → SUATTDRO 19:55
PROVIDERS: ATTEND Internal Medicine

== ENCOUNTER 2019-09-15 11:40 | Inpatient (IN) ==
[2019-09-15] MEDS ORDERED: NS 1,000 ML IV ONE (11:54)
--- NOTE | 2019-09-15 12:00 | Diag Imaging Result Doc PS360 ---
EXAM: CT HEAD W/O CONTRAST 09/15/2019 HISTORY: stroke like symptoms TECHNIQUE: This exam was performed using automated exposure control, adjustment of mA or kV according to patient size, and/or use of iterative reconstruction technique. COMMENT: There is decreased attenuation in the white matter in the periventricular white matter of the right frontal lobe extending into the anterior limb of the internal capsule and the anterior external capsule. These findings were also present on the previous study of 09/12/2019. There is no evidence of mass effect bleed or abnormal extra-axial fluid collection. Otherwise are has been no significant change in the appearance the brain. IMPRESSION: Chronic microvascular changes. Essentially stable since 09/12/2019. Electronically signed by Mark Hutchison 09/15/2019 11:57 AM
--- NOTE | 2019-09-15 12:28 | Diag Imaging Result Doc PS360 ---
EXAM: CHEST-PORTABLE HISTORY: stroke like symptoms TECHNIQUE: Single view COMPARISON: 09/12/2019 FINDINGS: The lungs are well expanded. The heart is not enlarged. The vessels are not distended. There are no infiltrates. No effusion identified. IMPRESSION: No definite pneumonia on the current exam. Electronically signed by Rishabh Judge 09/15/2019 12:25 PM
[2019-09-15 13:01] LABS: HEMOGLOBIN 14.7 g/dL (14.0-18.0); RBC 4.86 XMIL (4.7-6.1); WBC 8.35 X1000 (4.8-10.8)
[2019-09-15 13:02] LABS: BASO# 0.07 X1000 (0.0-0.2); BASO% 0.8 % (0.0-0.8); EOS# 0.13 X1000 (0.0-0.7); EOS% 1.6 % (0.0-10.0); IMM GRAN# 0.03 X1000 (0.0-0.04); IMM GRAN% 0.4 % (0.0-0.5); LYMPH# 1.26 X1000 (1.2-3.4); LYMPH% 15.1 % (20.5-51.1); MCH 30.2 PG (27-31); MCHC 33.4 g/dL (33-37); MCV 90.5 FL (81-99); MONO# 0.95 X1000 (0.11-0.59); MONO% 11.4 % (1.7-9.3); MPV 10.3 FL (7.4-10.4); NEUT# 5.91 X1000 (1.4-6.5); NEUT% 70.7 % (42.2-75.2); PLT 148 X1000 (130-400); RDW 14.4 % (11.5-14.5)
[2019-09-15 13:09] LABS: INR 1.19; PROTIME 15.3 Seconds (11.0-16.0)
[2019-09-15 13:20] LABS: URINE SOURCE CATH
[2019-09-15 13:21] LABS: AGAP 11; ALB/GLOB RATIO 1.7; ALBUMIN 3.5 g/dL (3.5-5.0); ALKALINE PHOSPHATASE 76 U/L (32-122); BUN 20 mg/dL (8-22); CALCIUM 8.5 mg/dL (8.8-10.2); CHLORIDE 105 mmol/L (98-107); COSMO 282; CREATININE 0.8 mg/dL (0.7-1.2); ESTIMATED GFR > 60; GLUCOSE 95 mg/dL (70-104); GOT 24 U/L (10-34); GPT 5 U/L (10-44); SODIUM 140 mmol/L (136-145); TCO2 24 mmol/L (25-35); TOTAL PROTEIN 5.6 g/dL (6.3-8.3)
[2019-09-15 13:26] LABS: BILIRUBIN URINE NEGATIVE (NEGATIVE); BLOOD URINE SMALL (NEGATIVE); COLOR YELLOW; GLUCOSE URINE NEGATIVE (NEGATIVE); KETONE URINE TRACE mg/dL (NEGATIVE); LEUKOCYTES URINE MODERATE (NEGATIVE); NITRITE URINE NEGATIVE (NEGATIVE); PH URINE 6.5; PROTEIN URINE TRACE mg/dL (NEGATIVE); SP GRAVITY URINE 1.021; TURBIDITY URINE CLEAR (CLEAR); UROBILINOGEN URINE 2 mg/dL (NORMAL)
[2019-09-15 13:27] LABS: UR EPITHELIAL CELLS <10 /HPF (<10); URINE BACTERIA NEGATIVE /HPF; URINE RBC <10 /HPF (<10); URINE WBC 20-40 /HPF (<10)
[2019-09-15 13:36] LABS: UR AMPHETAMINES QUAL NONE DETECTED (NONE DETECT); UR BARBITUATES QUAL NONE DETECTED (NONE DETECT); UR BENZODIAZEPIN QUAL NONE DETECTED (NONE DETECT); UR CANNABINOIDS QUAL NONE DETECTED (NONE DETECT); UR COCAINE QUAL NONE DETECTED (NONE DETECT); UR METHADONE QUAL NONE DETECTED (NONE DETECT); UR OPIATES QUAL NONE DETECTED (NONE DETECT); UR OXYCODONE QUAL NONE DETECTED (NONE DETECT); UR PCP QUAL NONE DETECTED (NONE DETECT)
--- NOTE | 2019-09-15 14:00 | PROVIDER DOCUMENTATION ---
This chart was entered by Cindy Pulido Scribe, acting as scribe for David Cintron MD. HPI-Neurological Disorder - General Stated Complaint: stroke like symptoms Time Seen by Provider: 09/15/19 11:53 Source: patient, EMS Allergies/Adverse Reactions: Patient Allergies Allergy/AdvReac Type Severity Reaction Status Date / Time Penicillins AdvReac Unknown Verified 09/12/19 16:26 Home Medications: Home Medication List Medication Instructions Recorded Confirmed Last Taken Type Cholecalciferol (Vitamin D3) 50 mcg PO DAILY 09/12/19 09/12/19 09/12/19 History [D3-2000] Ubidecarenone [Coq-10] 100 mg PO DAILY 09/12/19 09/12/19 09/12/19 History ATORVAstatin [Lipitor] 40 mg PO QHS #120 tab 09/14/19 Unknown Rx Aspirin 81 mg PO DAILY #120 chewtab 09/14/19 Unknown Rx Clopidogrel Bisulfate [Plavix] 75 mg PO DAILY #120 tab 09/14/19 Unknown Rx Losartan [Cozaar] 25 mg PO DAILY #120 tab 09/14/19 Unknown Rx Metoprolol Tartrate [Lopressor] 100 mg PO DAILY #120 09/14/19 Unknown Rx - History of Present Illness-Neuro Nature of Presenting Problem: pt is an 79 yowm presenting w/ ems due to stroke like symptoms. pt was dx 3 days ago w/ CVA, increased drooling, L sided facial droop and LLE weakness. pt son expressed that pt symptoms have worsened today. pt was d/c yesterday. pt homehealth RN came to home today and suggests pt be seen in rehab facility. ems sts pt also has rhinorrhea, post nasal drip and gargled speech. pt is afebrile. pt is tearful and has wet cough at bedside. pt denies pain. Review of Systems - Adult - REVIEW OF SYSTEMS - ADULT Constitutional: reports: no symptoms reported. denies: chills, fever, fatique Eyes: reports: no symptoms reported Ears, Nose, Mouth & Throat: reports: see HPI, sinus problem (rhinorrhea, post nasal drip), other (drooling). denies: ear pain, hoarseness, throat pain Cardiovascular: reports: no symptoms reported Respiratory: reports: see HPI, cough (wet). denies: dyspnea on exertion, excessive sputum production, shortness of breath Gastrointestinal: reports: no symptoms reported Genitourinary: reports: no symptoms reported Musculoskeletal: reports: see HPI, muscle weakness (LLE). denies: bone pain, back pain, muscle aches Integumentary: reports: no symptoms reported Neurological: reports: see HPI, slurred speech (gargled). denies: headache/migraines, syncope, tremors Psychiatric: reports: no symptoms reported Endocrine: reports: no symptoms reported Hematologic/Lymphatic: reports: no symptoms reported Allergic/Immunologic: reports: no symptoms reported All Other Systems: Reviewed and Negative Past History - Adult - PAST MEDICAL HISTORY-ADULT Review of Records: reports: Old Records Reviewed, Nursing Assessment Review, Med ications Reviewed, Social history reviewed & non-contributory. Major Childhood Illnesses: reports: denies history Cardiovascular: reports: HTN Respiratory: reports: denies history Gastrointestinal: reports: denies history Obstetrical/Gynecological: reports: denies history Genitourinary: reports: denies history Musculoskeletal: reports: denies history Neurological: reports: CVA Endocrine/Immune: reports: denies history Other Conditions: reports: denies history - PRIOR SURGERIES/PROCEDURES Surgical/Procedure History: reports: tonsillectomy - IMMUNIZATION STATUS Childhood Immunizations: See Nurse Assessment Flu Vaccine: See Nurse Assessment - FAMILY HISTORY Family History: reviewed, not pertinent - SOCIAL HISTORY Smoking: non-smoker Substance Use: none/never Physical Exam- Neurological - Physical Exam-Neuro Initial Vital Signs Reviewed: Yes General Appearance: alert, mild distress, slow to respond, other (tearful). negative: cachetic, lethargic, combative Eye Exam: bilateral eye: normal inspection, PERRL, EOMI HENMT: normocephalic/atraumatic, moist mucous membranes, other (difficulty w/or al secretions). negative: normal ENT inspection Head Injury: no evidence of injury Neck: non-tender, full range of motion, supple, normal inspection Respiratory: chest non-tender, normal breath sounds, no pleuratic chest pain, no respiratory distress, no accessory muscle use, rhonchi (scattered bilat lobes). 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 negative: normal speech, abnormal eye position, abnormal pupil position Motor/Sensory: no sensory deficit, no pronator drift, weak motor strength RLE (deadweight), weak motor strength LLE (deadweight), other (no UE drift, good work study student). negative: no motor deficit, pronator drift (R), pronator drift (L), sensory deficit Neurologic: abnormal preliminary school psychologist II-XII, aphasia (consider expressive aphasia), facial droop (L side), motor weakness (bilat LE). negative: preliminary school psychologist II-XII nml as tested, grossly normal, no motor/sensory deficits Integumentary: normal color, normal turgor, warm/dry, ecchymosis (L arm). negat ashley: swelling, tenderness, warm Psych/Mental Status: tearful. negative: normal mood/affect, normal thought content, normal thought process, oriented x 3 - Glascow Coma Scale Best Eye Response: (4) open spontaneously Best Verbal Response: (2) incomprehsible sounds Best Motor Response: (6) obeys commands Total Glascow Score: 12 Progress - PLAN OF CARE/RESULTS Progress/Plan/Lab Results: Vital Signs - 8 hr 09/15/19 12:12 Temperature 96.9 F L Pulse Rate 70 Respiratory Rate 28 H Blood Pressure 145/90 O2 Sat by Pulse Oximetry 97 Laboratory Results - last 24 hr 09/15/19 09/15/19 09/15/19 12:35 12:35 12:35 WBC 8.35 RBC 4.86 Hgb 14.7 Hct 44.0 MCV 90.5 MCH 30.2 MCHC 33.4 RDW Std Deviation 14.4 Plt Count 148 MPV 10.3 Immature Gran % (Auto) 0.4 Neut % (Auto) 70.7 Lymph % (Auto) 15.1 L [place]aston % (Auto) 11.4 H Eos % (Auto) 1.6 Baso % (Auto) 0.8 Immature Gran # (Auto) 0.03 Neut # (Auto) 5.91 Lymph # (Auto) 1.26 [place] # (Auto) 0.95 H Eos # (Auto) 0.13 Baso # (Auto) 0.07 PT INR PTT (Actin FS) Sodium 140 Potassium 4.0 Chloride 105 Carbon Dioxide 24 L Anion Gap 11 BUN 20 Creatinine 0.8 Estimated GFR/1.73 m2 > 60 BUN/Creatinine Ratio 25 Glucose 95 Calculated Osmolality 282 Calcium 8.5 L Total Bilirubin 0.80 AST 24 ALT 5 L Alkaline Phosphatase 76 Troponin T High Sens 13 Total Protein 5.6 L Albumin 3.5 Globulin 2.1 Albumin/Globulin Ratio 1.7 Plasma Lactate Urine Source Urine Color Urine Turbidity Urine pH Ur Specific [place] Urine Protein Ur Glucose (Stick) Ur Ketones (Stick) Urine Blood Urine Nitrite Urine Bilirubin Urobilinogen Dipstick Urine Leukocytes Urine WBC (Auto) Urine RBC (Auto) U Epithel Cells (Auto) Urine Bacteria (Auto) Urine Opiates Screen Ur Oxycodone Screen Ur Methadone, Qual Ur Barbiturates Screen Ur Phencyclidine Scrn Ur Amphetamines Screen U Benzodiazepines Scrn Urine Cocaine Screen U Cannabinoids Screen 09/15/19 09/15/19 09/15/19 12:35 12:35 13:15 WBC RBC Hgb Hct MCV MCH MCHC RDW Std Deviation Plt Count MPV Immature Gran % (Auto) Neut % (Auto) Lymph % (Auto) [place] % (Auto) Eos % (Auto) Baso % (Auto) Immature Gran # (Auto) Neut # (Auto) Lymph # (Auto) [place] # (Auto) Eos # (Auto) Baso # (Auto) PT 15.3 INR 1.19 PTT (Actin FS) 33.0 Sodium Potassium Chloride Carbon Dioxide Anion Gap BUN Creatinine Estimated GFR/1.73 m2 BUN/Creatinine Ratio Glucose Calculated Osmolality Calcium Total Bilirubin AST ALT Alkaline Phosphatase Troponin T High Sens Total Protein Albumin Globulin Albumin/Globulin Ratio Plasma Lactate 1.0 Urine Source Urine Color Urine Turbidity Urine pH Ur Specific [place] Urine Protein Ur Glucose (Stick) Ur Ketones (Stick) Urine Blood Urine Nitrite Urine Bilirubin Urobilinogen Dipstick Urine Leukocytes Urine WBC (Auto) Urine RBC (Auto) U Epithel Cells (Auto) Urine Bacteria (Auto) Urine Opiates Screen NONE DETECTED Ur Oxycodone Screen NONE DETECTED Ur Methadone, Qual NONE DETECTED Ur Barbiturates Screen NONE DETECTED Ur Phencyclidine Scrn NONE DETECTED Ur Amphetamines Screen NONE DETECTED U Benzodiazepines Scrn NONE DETECTED Urine Cocaine Screen NONE DETECTED U Cannabinoids Screen NONE DETECTED 09/15/19 13:15 WBC RBC Hgb Hct MCV MCH MCHC RDW Std Deviation Plt Count MPV Immature Gran % (Auto) Neut % (Auto) Lymph % (Auto) [place] % (Auto) Eos % (Auto) Baso % (Auto) Immature Gran # (Auto) Neut # (Auto) Lymph # (Auto) [place] # (Auto) Eos # (Auto) Baso # (Auto) PT INR PTT (Actin FS) Sodium Potassium Chloride Carbon Dioxide Anion Gap BUN Creatinine Estimated GFR/1.73 m2 BUN/Creatinine Ratio Glucose Calculated Osmolality Calcium Total Bilirubin AST ALT Alkaline Phosphatase Troponin T High Sens Total Protein Albumin Globulin Albumin/Globulin Ratio Plasma Lactate Urine Source CATH Urine Color YELLOW Urine Turbidity CLEAR Urine pH 6.5 Ur Specific [place] 1.021 Urine Protein TRACE A Ur Glucose (Stick) NEGATIVE Ur Ketones (Stick) TRACE A Urine Blood SMALL A Urine Nitrite NEGATIVE Urine Bilirubin NEGATIVE Urobilinogen Dipstick 2 A Urine Leukocytes MODERATE A Urine WBC (Auto) 20-40 A Urine RBC (Auto) <10 U Epithel Cells (Auto) <10 Urine Bacteria (Auto) NEGATIVE Urine Opiates Screen Ur Oxycodone Screen Ur Methadone, Qual Ur Barbiturates Screen Ur Phencyclidine Scrn Ur Amphetamines Screen U Benzodiazepines Scrn Urine Cocaine Screen U Cannabinoids Screen Orders Category Date Time Status Cardiac Monitoring DIRECTED Care 09/15/19 11:53 Active Finger Stick Blood Sugar (ED) DIRECTED Care 09/15/19 11:53 Active Oxygen Therapy- ED Nursing DIRECTED Care 09/15/19 11:53 Active Saline Loc NOW Care 09/15/19 11:53 Active CHEST-PORTABLE [RAD] Stat Exams 09/15/19 11:[address] HEAD W/O CONTRAST [CT] Stat Exams 09/15/19 11:39 Completed BLOOD CULTURE [BLDCUL] Stat Lab 09/15/19 12:43 Results CBC WITH ELECTRONIC DIFF [HEME] Stat Lab 09/15/19 12:35 Completed COMPREHENSIVE METABOLIC PANEL [CHEM] Stat Lab 09/15/19 12:35 Completed LACTATE, PLASMA [CHEM] Stat Lab 09/15/19 12:35 Completed PROTIME WITH INR [COAG] Stat Lab 09/15/19 12:35 Completed PTT [COAG] Stat Lab 09/15/19 12:35 Completed TROPONIN T HIGH SENSITIVITY Stat Lab 09/15/19 12:35 Completed URINALYSIS W/POSS RFLX CULT [URINALYSIS] Stat Lab 09/15/19 13:15 Completed URINE CULTURE [RM] Routine Lab 09/15/19 13:00 Received URINE DRUG SCREEN Stat Lab 09/15/19 13:15 Completed 0.9% Sodium Chloride Inj [Ns] 1,000 ml Med 09/15/19 11:54 Discontinued IV 999 mls/hr EKG [EKG] Stat Ther 09/15/19 11:53 Ordered Result Diagrams: 09/15/19 12:35 09/15/19 12:35 - XRAY 1 XRAY Study: Chest Impression: Normal, See EMR Report ( EXAM: CHEST-PORTABLE HISTORY: stroke like symptoms TECHNIQUE: Single view COMPARISON: 09/12/2019 FINDINGS: The lungs are well expanded. The heart is not enlarged. The vessels are not distended. There are no infiltrates. No effusion identified. IMPRESSION: No definite pneumonia on the current exam.) - CT/MRI 1 CT Study: Head Impression: See EMR Report ( EXAM: CT HEAD W/O CONTRAST 09/15/2019 HISTORY: stroke like symptoms TECHNIQUE: This exam was performed using automated exposure control, adjustment of mA or kV according to patient size, and/or use of iterative reconstruction technique. COMMENT: There is decreased attenuation in the white matter in the periventricular white matter of the right frontal lobe extending into the anterior limb of the internal capsule and the anterior external capsule. These findings were also present on the previous study of 09/12/2019. There is no evidence of mass effect bleed or abnormal extra-axial fluid collection. Otherwise are has been no significant change in the appearance the brain. IMPRESSION: Chronic microvascular changes. Essentially stable since 09/12/2019. 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 The physician did have a face to face encounter with the patient. - NIH Stroke Scale NIH Type: Initial Evaluation Level of Consciousness: 0-Alert LOC Questions (ask month and age): 0-Answers Both Correctly LOC Commands (ask to open & close eyes;make a fist, let go): 0-Obeys Both Correctly Best Gaze (horizontal eye movement): 1-Partial Gaze Palsy (gaze is abnormal in one or both eyes) Visual (use finger movement, counting or visual threat): 0-No Visual Loss Facial Palsy (show teeth or raise eyebrows & close eyes tght: 2-Partial Paralysis Motor Function-left arm: 0-Normal Motor Function-right arm: 0-Normal Motor Function-left le-No Effort Against [place] Motor Function-right le-No Effort Against [place] Limb Ataxia([id number], or heel to alcantar): 0-No Ataxia Sensory(pin prick to face,arms,trunk,legs-compare side/side): 0-No Ataxia Best Language(name item/read sentence.Ex-Down to Earth): 2-Severe Aphasia Dysarthria(Pt read words or say words Ex.Mama,Tip-Top,Thanks: 2-Near Unintelligible Extinction and Inattention: 0-Normal NIH Total Score: 13 Modified Kent Score Criteria: 4-moderately severe disability Stroke tPA Guidelines - Inclusion Criteria for IV tPA 18 years old or older: Yes Ischemic stroke with measurable deficit: Yes Onset <3 hours ago *OR* 3-4.5 hours ago: No - Exclusion Criteria for IV tPA Evidence of intracranial hemorrhage on CT: No Presentation suggest SAH: No CT reveals defined area of hypodensity: No Evidence of AVM, neoplasm, aneurysm: No Seizure at stroke onset: No Active internal bleeding or acute trauma: No Platelet Count Less Than 100,000: No Heparin Within Last 48 HRS (PTT >Lab normal limits): No INR > 1.7 (warfarin use): No Use IIB/IIIA inhibitors within 24 hours: No Serious Head Trauma Within Last 3 Months: No Arterial Puncture Within Last 7 Days: No Lumbar Puncture Within Last 7 Days: No Repeated systolic Blood Pressure >185 or Diastolic >110: No - Additional Exclusion Criteria for IV tPA Currently on Coumadin: No Patient older than 80: Yes Prior stroke and diabetes: Yes Baseline NIHSS score > 25: No - Consultation Candidate for:: NOT A CANDIDATE This chart was documented by the indicated scribe, (Cindy Pulido Scriblorin) and accurately reflects the services I performed and decisions made by , David Cintron MD, as attested by the provider's signature.
--- NOTE | 2019-09-15 14:04 | ED EKG INTERP ---
This chart was entered by Cindy Pulido Scribe, acting as scribe for David Cintron MD. EKG Interpretation - EKG Time of EKG reading by physician:: 13:42 EKG Read and Signed by:: David Cintron EKG Interpretation (*Must complete 3 of following elements*): Abnormal Rate: 73 (OAWMI) Rhythm: NSR [place]: normal [place] Interval: normal ST Wave: non-specific ST changes Comments: freq unifact PVCs Attestation - Physician/ TEOFILO Attestation Patient care was provided by Advanced Practice Provider:: No The physician spent face to face time with patient:: Yes Advanced Practice Provider documentation review:: Supervising physician onsite and consulted in the evaluation and care of this patient. The physician did have a face to face encounter with the patient. This chart was documented by the indicated scribe, (Cindy Pulido Scribe) and accurately reflects the services I performed and decisions made by , David Cintron MD, as attested by the provider's signature.
--- NOTE | 2019-09-15 14:16 | EKG Report ---
Test Performed on : 09/15/2019 1:41:08 PM Test Reason : Stroke like symptoms Blood Pressure : / mmHG Vent. Rate : 073 BPM Atrial Rate : 073 BPM P-R Int : 216 ms QRS Dur : 098 ms QT Int : 430 ms P-R-T Axes : 068 019 082 degrees QTc Int : 473 ms Sinus rhythm. with 1st degree AV block. with frequent premature ventricular complexes. Septal infarct (cited on or before 12-SEP-2019) Abnormal ECG When compared with ECG of 12-SEP-2019 16:42, (Unconfirmed) Nonspecific T wave abnormality now evident in Lateral leads Unconfirmed Result
--- NOTE | 2019-09-15 16:42 | HISTORY AND PHYSICAL ---
ADDENDUM: I have seen and examined Mr. Shepard today. Mr. Shepard is an 79-year-old, gentleman who was just discharged from the hospital yesterday, precisely by myself after he presented on that occasion because of inability to talk clearly, dysphagia, dysarthria, and generalized weakness and clumsiness. He was evaluated including MRIs and neurology also evaluated him. There was an initial plan to get him to rehab. However, he was very adamant and wanted to go home. Per Dr. Núñez's note, the family also wanted to take him home. Yesterday, Mr. Shepard was finishing eating his lunch at the time I saw him and he said he was doing fine. He had also been seen by physical therapy and per documentation, he had done about 100 feet with a wheeled walker. Unfortunately, I am told this morning that the family thinks Mr. Shepard was just not doing a whole lot by himself and that they wanted him to go to rehab. When I spoke with Mr. Shepard this afternoon, he was more tearful, almost crying after every question. However, he said he did not have any issues at home but he was just worried that he is not able to function as before. PHYSICAL EXAMINATION: Currently, his vitals, blood pressure is 144/90, pulse of 70, respirations are 28, temperature is 96.9 degrees. Physical exam shows that he is slightly dry on his mucous membranes. His chest is clear. Cardiovascular: Regular rate and rhythm. Abdomen is soft. HOT SAW HELPER: Patient is awake. He still slightly dysarthric with his speech but he sounds a little bit clearer than yesterday. He does have mild weakness on the left side of his body. Otherwise, his physical exam is unremarkable. LABORATORY DATA: Has also been reviewed, which shows no changes from yesterday. A CT scan of the brain which was done today shows microvascular changes, essentially stable, no new changes. A chest x-ray shows no definite pneumonia on the current exam. ASSESSMENT: 1. Recently diagnosed right paramedian, pontine, and right cerebellar cerebrovascular accident associated with dysphagia, dysarthria, horizontal diplopia, generalized clumsiness. The patient seems to be at his baseline. We are going to continue with his current medications, get physical therapy to evaluate him, get social work also to evaluate him for possible rehab placement. 2. Mild left ventricular hypertrophy secondary to hypertensive heart disease. 3. Hypertension. We will continue with his medications at home. We will try to avoid any hypotension at this point. 4. Significant carotid atherosclerosis, predominantly worse on the left side than the right. The patient is on statin, aspirin, and Plavix, and will follow up with vascular surgery once his current brain injury is thought to be stable. Please refer to the details of the HPI dictated by the EXPLORATION DRILLER. I have discussed the plan with her. cc: Gerard Mathews MD [id number]
[2019-09-15] MEDS ORDERED: ZOFRAN IV PRN (16:43)
[2019-09-15] MEDS: NS 1,000 ML IV SCH (18:26)
--- NOTE | 2019-09-15 18:42 | HISTORY AND PHYSICAL ---
CHIEF COMPLAINT: Difficulty swallowing, drooling, and generalized weakness. 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 The plan was for the patient to go to rehabilitation, although Mr. Shepard refused. He was adamant that he wanted to go home. The family followed his wishes. Therefore, the patient was discharged home. He was evaluated by Physical Therapy prior to discharge. It was documented that he walked about 100 feet with a wheeled walker. Today, after coming to the emergency room, the patient's son stated that Mr. Shepard had become weak. He was unable to walk at home and care for himself. He was having trouble swallowing secretions, having drooling, and a runny nose. The family stated that the patient was evaluated by a home health nurse who recommended that the patient be brought in for rehab. At the time of my exam, Mr. Shepard is awake, he is alert, he is oriented. He is crying in intervals. He does not want to go to rehab. He is scared to go to rehab, although he does admit that he needs it. PAST MEDICAL HISTORY: 1. 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 2. Dysphagia, dysarthria, horizontal diplopia. 3. Left ventricular hypertrophy secondary to hypertensive heart disease. 4. Hypertension. 5. Carotid arthrosclerosis, with left side greater than right. PAST SURGICAL HISTORY: 1. Appendectomy. 2. Right inguinal hernia repair. SOCIAL HISTORY: He denies alcohol, tobacco, or illicit drug use. He lives with his son. FAMILY HISTORY: Positive for mother having coronary artery disease with [place]. Father in a traumatic accident. ALLERGIES: Penicillin. HOME MEDICATIONS: A list will be obtained by the nursing staff and once verified, will review and restart as appropriate. REVIEW OF SYSTEMS: Discussed with patient with pertinent positives stated in the HPI. He denied any syncope or dizziness, any chest pain or palpitations, any fevers or chills, any nausea, vomiting, diarrhea, constipation, black or bloody vomitus or stools, any hematuria, dysuria, frequency, urgency. PHYSICAL EXAMINATION: VITAL SIGNS: Blood pressure is 144/89, heart rate is 73, respirations are 22, temperature is 96.9 degrees. EYES: Pupils are equal, round, and react to light. HEAD: Normocephalic and atraumatic. ENT: Mucous membranes are dry. NECK: Supple with trachea midline. CARDIOVASCULAR: Regular rate and rhythm. S1, S2 are appreciated. PULMONARY: Breath sounds are clear. No increased work of breathing noted. Chest rise and falls symmetrically with respiration. GASTROINTESTINAL: Abdomen is soft, nontender, and nondistended with bowel sounds in all 4 quadrants. NEUROLOGIC: He is alert. He is oriented. Speech is dysarthric. He continues to have weakness on the left side of his body. He does follow commands. He is able to answer questions. He does become frustrated, but once he calms, speech can be understood. LABS: WBC is 8 with hemoglobin 14.7, hematocrit 44, and platelets 148,000. Sodium 140, potassium 4, BUN 20, creatinine 0.8 with a glucose of 95. Urinalysis reveals moderate leukocytes with 20 to 40 white blood cells. Urine drug screen reveals none detected. Blood cultures and urine culture are pending. CT of the head reveals chronic microvascular changes, essentially stable since 09/12/2019. Chest x-ray revealed no definite pneumonia. ASSESSMENT AND PLAN: 1. Recent diagnosed right paramedian pontine and right cerebellar cerebrovascular accident with dysphagia, dysarthria, and horizontal diplopia. We are going to review his medications and continue as appropriate. Consult Physical Therapy. Consult Social Work to evaluate for rehabilitation placement. 2. Hypertension. We will continue his home medications, avoiding any hypotension at this point. 3. Significant carotid atherosclerosis, with left side greater than right. Continue his statin, aspirin, and Plavix. 4. Further treatments pending hospital course. Dictated by ALVARADO Hawkins for Gerard Mathews MD cc: ALVARADO Hawkins MD
[2019-09-15] MEDS: LIPITOR PO SCH (21:24)
--- NOTE | 2019-09-16 06:06 | Diag Imaging Result Doc PS360 ---
EXAM: CHEST-PORTABLE 09/16/2019 HISTORY: follow up TECHNIQUE: AP portable at 0441 COMMENT: There is borderline cardiomegaly and increased pulmonary vascularity. Considering differences in technique there has been no significant change since 09/15/2019. IMPRESSION: Cardiomegaly and increased pulmonary vascularity. Electronically signed by Mark Hutchison 09/16/2019 6:03 AM
[2019-09-16 08:33] LABS: BASO# 0.05 X1000 (0.0-0.2); BASO% 0.6 % (0.0-0.8); EOS# 0.14 X1000 (0.0-0.7); EOS% 1.6 % (0.0-10.0); HEMATOCRIT 43.6 % (42.0-52.0); IMM GRAN# 0.02 X1000 (0.0-0.04); IMM GRAN% 0.2 % (0.0-0.5); LYMPH# 0.76 X1000 (1.2-3.4); LYMPH% 8.5 % (20.5-51.1); MCHC 32.1 g/dL (33-37); MCV 93.4 FL (81-99); MONO# 0.96 X1000 (0.11-0.59); MONO% 10.7 % (1.7-9.3); MPV 10.5 FL (7.4-10.4); NEUT# 7.03 X1000 (1.4-6.5); NEUT% 78.4 % (42.2-75.2); PLT 132 X1000 (130-400); RBC 4.67 XMIL (4.7-6.1); RDW 14.6 % (11.5-14.5); WBC 8.96 X1000 (4.8-10.8)
[2019-09-16 08:58] LABS: AGAP 14; BUN 20 mg/dL (8-22); CALCIUM 8.3 mg/dL (8.8-10.2); CHLORIDE 107 mmol/L (98-107); COSMO 281; CREATININE 0.8 mg/dL (0.7-1.2); ESTIMATED GFR > 60; GLUCOSE 84 mg/dL (70-104); POTASSIUM 3.9 mmol/L (3.5-5.1); SODIUM 140 mmol/L (136-145); TCO2 19 mmol/L (25-35)
[2019-09-16] MEDS ORDERED: COZAAR PO SCH (09:00)
[2019-09-16] MEDS ORDERED: LOPRESSOR PO SCH (09:00)
[2019-09-16] MEDS: NUEDEXTA 20-10 MG CAPSULE PO SCH ×2 (10:19→17:35)
[2019-09-16] MEDS: PLAVIX PO SCH ×2 (10:19→17:32)
[2019-09-16] MEDS: ASPIRIN PO SCH ×2 (10:19→17:33)
[2019-09-16] MEDS: COENZYME Q10 PO SCH ×2 (10:20→17:33)
[2019-09-16] MEDS: NS 1,000 ML IV SCH (10:20)
--- NOTE | 2019-09-16 10:24 | PROGRESS NOTE ---
DATE: 09/16/2019 SUBJECTIVE: I have seen and examined Mr. Shepard today. Mr. Shepard refers to be doing fair. Intermittently in between the conversation, he would just burst out crying. OBJECTIVE: Vital Signs: Blood pressure is 143/62, pulse of 76, respirations are 15, temperature is 98.2 degrees. General Examination: Mr. Shepard is an 79-year-old, male. He is in bed. No distress. HEENT: Mucosa is pink, slightly dry. Anicteric. Acyanotic. Neck: Supple. No JVD. Chest: Good air entry bilaterally. A few crackles posteriorly. Cardiovascular: Regular rate and rhythm. GI: Abdomen is soft, nontender. Bowel sounds present. Extremities: No pedal edema. PERSONNEL RECORDS CLERK: The patient is awake, alert. Continues to be dysarthric with his speech. He is mildly weaker on the left side of his body. Laboratory Data: CBC is unremarkable. Chemistry is also completely within normal range. ASSESSMENT: 1. Recently diagnosed right paramedian, pontine, and cerebellar hemisphere stroke associated with dysphagia, dysarthria, and generalized clumsiness. 2. Inappropriate crying, suspicious for pseudobulbar affect( PBA). We will start the patient on Nuedexta and sertraline. 2. Hypertension with mild left ventricular hypertrophy. The patient is on medications. 3. Significant carotid atherosclerosis, predominantly worse on the left side than the right. The patient is on statin, aspirin, and Plavix. Will follow up with vascular surgery on an outpatient basis. PLAN: In general, Mr. Shepard remains fairly the same. I think his speech sounds slightly more garbled today than yesterday. We are going to repeat the MRI this morning. He is also pending a swallow evaluation. We will also get neurology to re-evaluate him today. Mr. Shepard is pending rehab placement. cc: [facility]ard Mathews MD [facility]
--- NOTE | 2019-09-16 11:03 | Diag Imaging Result Doc PS360 ---
EXAM: MRI BRAIN W/O CONTRAST 09/16/2019 HISTORY: HX stroke with worsening symptoms TECHNIQUE: T1 sagittal, axial, axial T2, FLAIR, DWI and coronal gradient echo. COMMENT: There is increased T2-weighted signal intensity on the right in the mid tahir at the level of the middle cerebellar peduncle. This has increased in signal intensity since the previous examination of 09/13/2019. There is increased signal intensity in both cerebral peduncles. There is a small focus in the upper lateral right cerebellar hemisphere. There are punctate and patchy areas of increased T2-weighted signal intensity in the subcortical white matter of both hemispheres and particularly adjacent to the right frontal horn. The above described areas of the tahir, cerebral peduncles, and right cerebellar hemisphere also demonstrate restricted diffusion as well as the case at the time the previous study. IMPRESSION: Subacute infarctions in the right tahir, right cerebellar hemisphere, and cerebral peduncles. Extensive chronic microvascular changes in the cerebral hemispheres. Electronically signed by Mark Hutchison 09/16/2019 11:01 AM
[2019-09-16] MEDS: LIPITOR PO SCH (22:01)
[2019-09-16] MEDS: ZOLOFT PO SCH (22:01)
[2019-09-17] MEDS: LOPRESSOR PO SCH ×3 (05:44→21:15)
[2019-09-17 07:52] LABS: HEMATOCRIT 42.1 % (42.0-52.0); MCH 29.8 PG (27-31); MCHC 33.3 g/dL (33-37); MCV 89.6 FL (81-99); MPV 10.4 FL (7.4-10.4); RBC 4.7 XMIL (4.7-6.1); WBC 9.93 X1000 (4.8-10.8)
[2019-09-17 08:12] LABS: AGAP 12; ALBUMIN 3.3 g/dL (3.5-5.0); BUN 18 mg/dL (8-22); CHLORIDE 102 mmol/L (98-107); COSMO 275; CREATININE 0.7 mg/dL (0.7-1.2); ESTIMATED GFR > 60; GLUCOSE 92 mg/dL (70-104); POTASSIUM 3.9 mmol/L (3.5-5.1); SODIUM 137 mmol/L (136-145); TCO2 23 mmol/L (25-35)
[2019-09-17] MEDS: COENZYME Q10 PO SCH (10:49)
[2019-09-17] MEDS: PLAVIX PO SCH (10:50)
[2019-09-17] MEDS: ASPIRIN PO SCH (10:51)
[2019-09-17] MEDS: NUEDEXTA 20-10 MG CAPSULE PO SCH (10:51)
--- NOTE | 2019-09-17 12:06 | PROGRESS NOTE ---
DATE: 09/17/2019 SUBJECTIVE: This morning, Mr. Shepard refers to be feeling so-so. He was really not able to tell me the reason why. He said he had generalized pains everywhere. Intermittently in our conversation, he will burst into cries. OBJECTIVELY: Vital Signs: Current vitals are blood pressure 151/80, pulse of 73, respiration 17, temperature 98.8 degrees. General: Mr. Shepard is an 79-year-old male. He is in bed. He does not seems to be in any cardiopulmonary distress. HEENT: Mucosa is pink and moist. Anicteric. Acyanotic. Neck: Supple. There is no JVD. Chest: Good air entry bilateral. Mild crackles in the posterior lung silvestre. Cardiovascular: Regular rate and rhythm. I did not hear any obvious murmurs. Neurologic: Patient is awake, alert. He is oriented to person and to place, disoriented to time. He continues to have very dysarthric speech but could be understandable. The patient has about 3+ to 4- power in both left upper extremity and lower extremity. LABORATORY DATA: This morning, has been reviewed, completely within normal range. So far, blood cultures and urine culture have been negative. MEDICATIONS: The patient's medications have also been reviewed and no new changes. Both physical therapy report and speech therapy report for today have been reviewed. ASSESSMENT: 1. Subacute/acute right paramedian pontine and cerebellar hemisphere strokes associated with dysphagia, dysarthria, generalized clumsiness and left-sided hemiparesis. 2. Inappropriate outburst of cry suspicious for pseudobulbar effect associated with the cerebrovascular accident. The patient is on Nuedexta and sertraline. 3. Hypertension, associated with left ventricle hypertrophy. The patient's blood pressure medications have been withheld due to what appears to have been mild extension of his stroke with trying to allow permissive hypertension. 4. Significant carotid artery sclerosis, worse on the left than the right noted. Patient is currently on statin, aspirin and Plavix. 5. Left ventricle mild hypertrophy, presumably secondary to hypertensive heart disease. PLAN: In general, I think Mr. Shepard remains fairly the same. His diet has been upgraded to mechanical soft as per speech therapy report. We are going to continue with physical therapy, speech and occupational therapy. We will continue with his current medications and will be pending evaluation from Neurology today. Mr. Shepard will be discharged to rehab once medically cleared. We are also waiting for his Covid-19 testing before he will be accepted to rehab. cc: Gerard Mathews MD
[2019-09-17] MEDS: ZOLOFT PO SCH (21:15)
[2019-09-17] MEDS: LIPITOR PO SCH (21:15)
[2019-09-18] MEDS: LOPRESSOR PO SCH ×2 (10:01→21:16)
[2019-09-18] MEDS: ASPIRIN PO SCH (10:01)
[2019-09-18] MEDS: NUEDEXTA 20-10 MG CAPSULE PO SCH (10:01)
[2019-09-18] MEDS: PLAVIX PO SCH (10:01)
[2019-09-18] MEDS: COENZYME Q10 PO SCH (10:02)
--- NOTE | 2019-09-18 14:20 | PROGRESS NOTE ---
DATE: 09/18/2019 SUBJECTIVE: I have seen and examined Mr. Shepard today. Mr. Shepard referred that he is okay. He still remains quite dysarthric, but I think his speech is a little bit clearer than yesterday. He continues to have intermittent outbursts of crying. OBJECTIVE: Vital signs: Blood pressure 175/84, pulse of 91, respiration is 20, temperature 98.7 degrees. General: Mr. Shepard is an 79-year-old gentleman. He is in bed in no distress. HEENT: Mucosa is pink and moist. Anicteric. Acyanotic. Neck: Supple. Chest: Clear to auscultation. Cardiovascular: Regular rate and rhythm. GI/Abdomen: Soft. Extremities: No pedal edema. ANTENNA ENGINEER: Patient is awake and alert, oriented to person and to place. He continues to be dysarthric. He is able to move the left side of his upper and lower extremities against gravity, but not against resistance. The right side is unremarkable with normal power. The patient continues to have the tongue slightly deviated to the left side. As I said, he has intermittent burst of cry during the encounter. LABORATORY DATA: No laboratory data today. MEDICATIONS: Have been reviewed. No changes. ASSESSMENT AND PLAN: A repeat MRI which was done on the showed subacute infarctions in the right tahir, right cerebellar hemisphere and cerebral pedicles. There is also T2 signal intensity in the subcortical white matter of both hemispheres, and particularly adjacent to the right frontal horn. 1. Subacute posterior circulation stroke at right paramedian pontine and cerebellar hemisphere infarctions leading to dysphagia, dysarthria, generalized clumsiness and left-side hemiparesis. The patient is currently on aspirin and Plavix and statin. 2. Inappropriate outbursts of crying, suspicious for pseudobulbar Affect (PBA). The patient is currently on Nuedexta and sertraline pending Neurology evaluation. 3. Mild hypertensive heart disease. Noted. 4. Hypertension. We will continue medications. But avoid hypotension. 5. Significant carotid artery stenosis, worse on the left than the right. We will continue with medical management. The patient will need to follow up at a later date with vascular surgeons. So, for now, we are going to continue with the current medications, physical therapy and hope that we get a rehab bed for Mr. Shepard in the coming week, so he can continue with his physical therapy, occupational and speech. cc: Gerard Mathews MD Addendum: I have called and spoken to patient son. I have updated him about patient medical status. Son tells me about Travoprost eye drops for his glaucoma. I will restart it. All his questions and concerns addressed. ELIZABETH
[2019-09-18] MEDS: ZOLOFT PO SCH (21:16)
[2019-09-18] MEDS: LIPITOR PO SCH (21:16)
[2019-09-18] MEDS: TRAVATAN 0.004% OPH SOLN BOTH EYES SCH (21:17)
[2019-09-19] MEDS: NUEDEXTA 20-10 MG CAPSULE PO SCH (09:48)
[2019-09-19] MEDS: ASPIRIN PO SCH (09:48)
[2019-09-19] MEDS: COENZYME Q10 PO SCH (09:48)
[2019-09-19] MEDS: PLAVIX PO SCH (09:48)
[2019-09-19] MEDS: LOPRESSOR PO SCH (09:49)
[2019-09-19] MEDS: MYCOSTATIN SUSP PO SCH ×3 (13:26→20:59)
--- NOTE | 2019-09-19 13:48 | PROGRESS NOTE ---
DATE: 09/19/2019 SUBJECTIVE: I have seen and examined Mr. Shepard today. Mr. Shepard continues to remain the same. I understand he age about 75% of his meals last night. However, this morning, he only just had a few bites. He continues to have intermittent episodes of crying. However, it looks like it is getting less frequent. OBJECTIVE: Vital Signs: Blood pressure 147/76, pulse of 70, respirations 20, temperature 98.3 degrees. General: Mr. Shepard is an 79-year-old, gentleman. He is in bed. No distress. HEENT: Mucosa is pink and moist. Anicteric. Acyanotic. Neck: Supple. Chest: Good air entry bilaterally. There are no crepitations, no rhonchi. Cardiovascular: Regular rate and rhythm. GI: Abdomen is soft, nontender. Bowel sounds present. Extremities: No pedal edema. SHIP PURSER: The patient is awake, alert, oriented to person and to place. He continues to be slightly dysarthric in his speech. Left side of the body has a power of about 4-/5. There is good power on the right side. The patient's tongue deviates also to the left. There are some white plaques in the hard and soft palate. LABORATORY DATA: No laboratory data for today. MEDICATIONS: The patient's medications have all been reviewed. No changes. ASSESSMENT: 1. Subacute posterior circulation stroke with a right paramedian pontine and cerebellar hemisphere infarctions leading to dysphagia, dysarthria, generalized clumsiness, and left- sided hemiparesis. 2. Intermittent outbursts of crying, suspicious for pseudobulbar affect. The patient has been started on Nuedexta and sertraline. He seems to have less outbursts this morning. We are going to continue to monitor. 3. Mild left ventricular hypertrophy secondary to hypertensive heart disease. 4. Significant carotid artery stenosis, worse on the left than the right. The patient is on medical management. He will follow up with Vascular Surgery at a later date. Disposition. Pending rehab placement. cc: Gerard Mathews MD [facility]TD[facility]
[2019-09-19] MEDS: LIPITOR PO SCH (20:59)
[2019-09-19] MEDS: TRAVATAN 0.004% OPH SOLN BOTH EYES SCH (20:59)
[2019-09-19] MEDS: COREG PO SCH (20:59)
[2019-09-19] MEDS: ZOLOFT PO SCH (20:59)
[2019-09-20] MEDS: NUEDEXTA 20-10 MG CAPSULE PO SCH (09:41)
[2019-09-20] MEDS: PLAVIX PO SCH (09:41)
[2019-09-20] MEDS: COREG PO SCH (09:42)
[2019-09-20] MEDS: COENZYME Q10 PO SCH (09:42)
[2019-09-20] MEDS: MYCOSTATIN SUSP PO SCH (09:42)
[2019-09-20] MEDS: ASPIRIN PO SCH (09:42)
--- NOTE | 2019-09-20 10:50 | DISCHARGE SUMMARY ---
ADMISSION DATE: 09/15/2019 DISCHARGE DATE: 09/20/2019 I have seen and examined Mr. Shepard today. [facility] CONSULTATION DURING THIS ADMISSION: None. INVASIVE PROCEDURES DONE DURING THIS ADMISSION: None. IMAGING STUDIES OF SIGNIFICANCE: 1. A CT scan of the head without contrast showed chronic microvascular changes. 2. An MRI of the brain did show subacute infarctions in the right tahir, right cerebellar hemispheres and cerebral patent pedicles. There is also extensive chronic microvascular changes in the cerebral hemispheres. MICROBIOLOGY DATA OF SIGNIFICANT: Blood culture and urine cultures were negative. ADMISSION DIAGNOSES: 1. Recent diagnosis of right paramedian pontine and right cerebellar strokes. 2. Hypertension. 3. Significant carotid atherosclerosis. DIAGNOSES AT THE TIME OF DISCHARGE: 1. Subacute posterior circulation stroke with a right paramedian pontine and cerebellar hemisphere infarctions leading to dysphagia, dysarthria and generalized clumsiness and left- sided hemiparesis. 2. Intermittent outbursts of crying, suspicious for pseudobulbar affect. 3. Mild left ventricular hypertrophy secondary to hypertensive heart disease. 4. Significant carotid artery stenosis, left more than right. The patient to follow up with Vascular Surgery. 5. Hypertension, controlled. 6. Dyslipidemia. DISCHARGE MEDICATIONS: 1. Vitamin D. 2. CoQ-10 100 mg p.o. daily. 3. Plavix 75 mg p.o. daily. 4. Atorvastatin 40 mg p.o. at bedtime. 5. Aspirin 81 mg p.o. daily. 6. Sertraline 25 mg p.o. at bedtime. 7. Nuedexta 1 tab daily. 8. Carvedilol 3.125 b.i.d. PRESENTING COMPLAINT: Difficulty swallowing, drooling, and generalized weakness. HISTORY OF PRESENTING COMPLAINT: Mr. Shepard is an 79-year-old male with history of hypertension and recent stroke. The patient was admitted to the hospital for 48 hours and discharged home with home health. Unfortunately, a day after his discharge, he was brought back, that he was not able to swallow and the family members were concerned. Mr. Shepard was readmitted for medical management. HOSPITAL COURSE: Mr. Shepard was admitted to the medical floor, was gently hydrated overnight. He was re-evaluated by Speech Therapy who initially recommended thickened liquids and subsequently advanced the diet to mechanical soft. He did tolerate his meals during the hospital course. He was taking anywhere between 25 to 75 percent of his meals. Mr. Shepard also had intermittent outbursts of crying, which we think is related to pseudobulbar affect of the strokes. He has been started on Nuedexta. It seems to be less frequent than before. We need to continue to monitor. Mr. Shepard also had to undergo Coronavirus Disease 2019 (COVID-19) testing, which was done on the , and it was negative and this was done for rehab placement. Mr. Shepard has been evaluated by Physical Therapy as well during the hospital course. This morning Mr. Shepard refers to be doing well. He said he is eating his breakfast. His vitals are stable with a blood pressure 154/80, pulse of 75, respirations 16, temperature 97.8 degrees. He is awake, alert. His speech is still slightly garbled and dysarthric, but he understands and follows commands. He still has a power of about 3+ to 4- on the left side of his body. The right side is unremarkable. He is currently medically stable for discharge. He will need to continue physical, occupational and speech therapy in the rehab. He would also need to follow up with Dr. Mata, the neurologist, and also Dr. Mari for his carotid artery stenosis, especially the one on the left, at a later date. TIME ATTESTATION: Discharge time is 35 minutes. cc: Gerard Mathews MD [facility]
[2019-09-20 11:08] VITALS: BP 135/79
== END 2019-09-20 15:44 | DRG 64 ==
LOC: SUPCPDRO → ED 11:40 → 3N 16:56
PROVIDERS: ATTEND Internal Medicine